=== PATIENT | female | born 1960 | race Caucasian/White ===

== ENCOUNTER → 2018-01-20 | Outpatient (CLI) | payer BC ==
[2018-01-20 10:51] LABS: Basophils % (A) 1 %; Eosinophils # (A) 0.4 k/uL (0-0.7); Eosinophils % (A) 7 %; HCT 38.3 % (34.0-46.0); HGB 12.9 gm/dL (11.4-16.0); Lymphocytes # (A) 1.5 k/uL (1.0-4.8); Lymphocytes % (A) 28 %; MCH 31.7 pg (25.0-35.0); MCHC 33.8 g/dL (31.0-37.0); MCV 93.5 fL (80.0-100.0); Mean Platelet Volume 6.9; Monocytes # (A) 0.4 k/uL (0-1.0); Monocytes % (A) 7 %; Neutrophils % (A) 56 %; Platelet Count 243 k/uL (150-450); RBC 4.09 m/uL (3.80-5.40); RDW 12.1 % (11.5-15.5); WBC 5.4 k/uL (3.8-10.6)
[2018-01-20 11:36] LABS: T4, Free (Free Thyroxine) 0.87 ng/dL (0.78-2.19)
[2018-01-20 16:06] LABS: Vitamin D 25 Hydroxy 33.6 ng/mL (30.0-100.0)
[2018-01-20 17:43] LABS: Progesterone 0.4 ng/mL
[2018-01-20 18:43] LABS: Hemoglobin A1C 5.5 % (4.0-6.0)
== END | disposition home or self-care (01) ==
LOC: LABWHC1 09:58
PROVIDERS: ATTEND Family Medicine
DX: E78.00 Pure hypercholesterolemia, unspecified (principal); I10 Essential (primary) hypertension; R53.82 Chronic fatigue, unspecified; Z78.0 Asymptomatic menopausal state
CPT/HCPCS: 36415; 80061; 82306; 82533; 82607; 82626; 82670; 83001; 83002; 83036; 83835; 84144; 84403; 84439; 84443; 84480; 85025

== ENCOUNTER → 2018-01-30 | Outpatient (CLI) | payer BC ==
--- NOTE | 2018-01-30 13:47 | MM ---
Reason for exam: additional evaluation requested from prior study. Last mammogram was performed 2 years and 9 months ago. History: Patient is postmenopausal and has history of breast cancer at age 45. Family history of breast cancer in mother at age 50. Silicone gel implants in both breasts, 2006. Mastectomy of the left breast, 2005. Took hormonal contraceptives for 5 years. Taking other hormone for 1 year. Physical Findings: Nurse did not find any significant physical abnormalities on exam. MG Diag Mamm Implant RT w CAD CC, MLO, and ID view(s) were taken of the right breast. Prior study comparison: May 09, 2015, right breast MG 3d diag mammo imp w/cad RT. May 07, 2014, right breast MG diagnostic mammo RT w CAD. There are scattered fibroglandular densities. No suspicious calcifications are seen. Implant is intact. No significant new findings when compared with previous films. These results were verbally communicated with the patient and result sheet given to the patient on 01/30/18. ASSESSMENT: Benign, BI-RAD 2 RECOMMENDATION: Follow-up diagnostic mammogram of the right breast in 1 year.
== END | disposition home or self-care (01) ==
LOC: RADMAMWWP 09:33
PROVIDERS: ATTEND Surgery
DX: Z08 Encounter for follow-up examination after completed treatment for malignant neoplasm (principal); Z85.3 Personal history of malignant neoplasm of breast
CPT/HCPCS: 77065

== ENCOUNTER → 2018-02-03 | Outpatient (CLI) | payer BC ==
--- NOTE | 2018-02-03 13:36 | BD ---
EXAMINATION TYPE: Axial Bone Density DATE OF EXAM: 02/03/2018 Comparison: Prior DEXA bone scan report June 16, 2008 CLINICAL HISTORY: Height: 63 Weight: 158 FRAX RISK QUESTIONS: Alcohol (3 or more units per day): no Family History (Parent hip fracture): no Glucocorticoids (More than 3mos): no (Ex: prednisone, prednisolone, methylprednisolone, dexamethasone, and hydrocortisone). History of Fracture in Adulthood: no Secondary Osteoporosis: 1. Type 1 Diabetes: no 2. Hyperthyroidism: no 3. Menopause before 45: yes 4. Malnutrition: no 5. Chronic liver disease: no Rheumatoid Arthritis: no Current Tobacco Use: no RISK FACTORS HISTORY OF: Family History of Osteoporosis: yes, mother Active: yes Diet low in dairy products/other sources of calcium: no Postmenopausal woman: yes Take estrogen and/or progesterone medications: Bioidentical hormones for 1 year How long: hormonal contraceptives about 5 years in the past Lost more than 2 inches in height since high school: no Frequent falls: no Poor Health: no Hyperparathyroidism: no Adrenal Insufficiency: no MEDICATIONS: Prednisone or other steroids: no Thyroid Medications: no Osteoporosis Medications: no Additional Medications: multivitamin, blood pressure, cholesterol meds Additional History: breast CA age 45 EXAM MEASUREMENTS: Bone mineral densitometry was performed using the Georgina Goodman System. Bone mineral density as measured about the Lumbar spine is: ----- L1-L4(G/cm2): 1.064 T Score Values are as follows: ----- L2: -1.2 ----- L3: -0.1 ----- L4: -1.6 ----- L1-L4: -1.0 Bone mineral density has: Decreased -13.0% since study of: 06/16/2008 Bone mineral density about the R hip (g/cm2): 0.899 Bone mineral density about the L hip (g/cm2): 0.894 T Score values are as follows: -----R Neck: -1.0 -----L Neck: -1.0 -----R Total: 0.0 -----L Total: -0.3 Bone mineral density has: Decreased -7.3% since study of: 06/16/2008 IMPRESSION: Normal (Values between +1 and -1 indicate normal bone mass). Consider repeating this study in 5 year s or sooner if there is some new clinical indication. NOTE: T-SCORE=SD OF THE YOUNG ADULT MEAN.
== END | disposition home or self-care (01) ==
LOC: RADBDWWP 07:24
PROVIDERS: ATTEND Family Medicine
DX: N95.1 Menopausal and female climacteric states (principal)
CPT/HCPCS: 77080

== ENCOUNTER → 2019-03-18 | Outpatient (CLI) | payer BC ==
--- NOTE | 2019-03-18 10:21 | MM ---
Reason for exam: additional evaluation requested from prior study. Last mammogram was performed 1 year and 2 months ago. History: Patient is postmenopausal and has history of breast cancer at age 45. Family history of breast cancer in mother at age 50. Silicone gel implants in both breasts, 2006. Mastectomy of the left breast, 2005. Took hormonal contraceptives for 5 years. Taking estrogen for 2 years. Taking other hormone for 2 years. Physical Findings: Nurse did not find any significant physical abnormalities on exam. MG 3D Diag Mammo Imp W/Cad RT CC, MLO, and ID view(s) were taken of the right breast. Prior study comparison: January 30, 2018, right breast MG diag mamm implant RT w CAD. May 09, 2015, right breast MG 3d diag mammo imp w/cad RT. The breast tissue is heterogeneously dense. This may lower the sensitivity of mammography. No suspicious abnormality. These results were verbally communicated with the patient and result sheet given to the patient on 03/18/19. ASSESSMENT: Negative, BI-RAD 1 RECOMMENDATION: Follow-up diagnostic mammogram of the right breast in 1 year.
== END | disposition home or self-care (01) ==
LOC: RADMAMWWP 08:55
PROVIDERS: ATTEND Obstetrics & Gynecology
DX: Z08 Encounter for follow-up examination after completed treatment for malignant neoplasm (principal); Z85.3 Personal history of malignant neoplasm of breast; Z98.82 Breast implant status
CPT/HCPCS: 77061; 77065

== ENCOUNTER → 2019-03-19 | Outpatient (CLI) | payer BC ==
--- NOTE | 2019-03-19 21:05 | CONS ---
CONSULTATION DATE OF SERVICE: 03/19/2019 58-year-old lady who has been evaluated in the sleep center for possible obstructive sleep apnea-hypopnea syndrome. HISTORY OF PRESENT ILLNESS/SLEEP WAKE EVALUATION.: SLEEP SCHEDULE: The patient's usual sleep schedule from 9 or 10:00 pm to 6 or 7 a.m. on working days and from 10 to 11 p.m. until 8 or 9 a.m. on weekends. FALLING ASLEEP: No problem with falling asleep, although she reads in bedroom. DURING SLEEP: She usually sleeps on the side position. According to her , she snores. She wakes up from sleep about 2 times with nocturia and grinding teeth. DURING THE DAY/SLEEP WAKE EVALUATION: During the day, she does have problem with memory, concentration, episodes of depression. [place] Sleepiness Scale is 2. PAST MEDICAL HISTORY: Positive for anxiety, depression, hypertension, hyperlipidemia, left breast CA. Menopause. PAST SURGICAL HISTORY: Left mastectomy in 2005, cholecystectomy. MEDICATIONS: Bupropion, atenolol, Ditropan, simvastatin. SOCIAL HISTORY: Negative for smoking. Alcohol consumption occasional. FAMILY HISTORY: Hypertension, angina, heart problems, hyperlipidemia, stroke, arthritis, sleep apnea, snoring, cancers, narcolepsy, liver problems, diabetes, anemia, mental illness. REVIEW OF SYSTEMS: Awakenings from sleep, memory problems. PHYSICAL EXAM: lady without distress, BP 134/73, HR 72, RR 16, height 5 feet 4 inches, weight 152, body mass index 29.6, oxygen saturation at room air 97%. Oropharynx extremely low position of soft palate. Mallampati 4. Neck 14-1/2 inches in circumference. Neck Supple, no JVD. Thyroid is not palpable. LUNGS Clear to percussion and to auscultation. Good air exchange. No wheezing or rhonchi. Restriction of nasal breathing bilaterally. HEART S1, S2 regular. No murmurs, gallops, or rubs. ABDOMEN Soft and nontender. Bowel sounds are present. No organomegaly appreciated. EXTREMITIES No clubbing or cyanosis. INTERVENTION SPECIALIST Awake, alert, and oriented X3. Cranial nerves 2 to 7 intact. There is no fasciculation or atrophy. noted. No focal deficits observed. IMPRESSION: 1. Snoring, awakenings from sleep with nocturia. Extremely low position of soft palate. Possible obstructive sleep apnea-hypopnea syndrome. 2. Overweight, body mass index 29.6. 3. Menopause. 4. History of left breast carcinoma, status post mastectomy in 2005. 5. History of anxiety. 6. History of depression. 7. Hypertension. 8. Hyperlipidemia. 9. Status post cholecystectomy. 10.Restriction of nasal breathing; possibly nasal septum deviation. PLAN: 1. Home sleep apnea test. 2. Polysomnography for evaluation of patient's breathing during sleep. 3. CPAP/BiPAP titration if sleep study confirms obstructive sleep apnea-hypopnea syndrome. 4. Preferable position during sleep on the side. 5. No driving if patient feels any sleepiness. 6. I will see patient for follow up visit to explain results of testing and following plan. Thank you very much for referring this patient for consultation. Sincerely, Osmani Manning MD, PhD, FAASM Diplomat of [employer] [facility] [place] MMODL / IJN: [id number] /
== END | disposition home or self-care (01) ==
LOC: SLEEP 15:30
PROVIDERS: ATTEND Internal Medicine
DX: R06.83 Snoring (principal); R35.1 Nocturia; E66.3 Overweight; Z68.29 Body mass index [BMI] 29.0-29.9, adult; Z78.0 Asymptomatic menopausal state; I10 Essential (primary) hypertension; E78.5 Hyperlipidemia, unspecified; J98.8 Other specified respiratory disorders; Z85.3 Personal history of malignant neoplasm of breast; Z86.59 Personal history of other mental and behavioral disorders; Z90.10 Acquired absence of unspecified breast and nipple; Z90.49 Acquired absence of other specified parts of digestive tract; Z79.899 Other long term (current) drug therapy
CPT/HCPCS: 99211

== ENCOUNTER → 2020-01-07 | Outpatient (CLI) | payer BC ==
--- NOTE | 2020-01-08 07:51 | SFUN ---
SLEEP CENTER FOLLOW UP NOTE DATE OF SERVICE: 01/07/2020 89-year-old lady has been followed in Sleep Center for treatment of obstructive sleep apnea-hypopnea syndrome. In end of 2019, patient has been diagnosed with moderate obstructive sleep apnea with apnea-hypopnea index 16.2. Had CPAP titration. During titration her respiration was normalized on CPAP. Today is her first visit after she was started on treatment with CPAP. The patient is able to use her CPAP equipment every night without significant problems. [place] Sleepiness Scale today is 2. I checked her CPAP unit, range of the pressure 5-9 cm of water. Average pressure 8.5 cm of water. Usage 27/30 nights for more than 4 hours with average usage is 5.8 hours per night. Leak is 20 L/minutes which is acceptable. Apnea-hypopnea index only 0.7 which is totally normal. PHYSICAL EXAM: Patient in no distress. Blood pressure 138/95, HR 88, RR 16, weight 158 pounds. Oxygen saturation at room air 96%. Abdomen slightly obese. Temperature 98.6. NECK: Supple, no JVD. Thyroid is not palpable. LUNGS: Clear to percussion and to auscultation. Good air exchange. No wheezing or rhonchi. HEART: S1, S2 regular. No murmurs, gallops, or rubs. ABDOMEN: Slightly obese. EXTREMITIES: No clubbing or cyanosis. MATERIAL SPREADER: Awake, alert, and oriented X3. Cranial nerves 2 to 7 intact. There is no fasciculation or atrophy. noted. No focal deficits observed. IMPRESSION: 1. Obstructive sleep apnea. 2. Hypertension. 3. Hyperlipidemia. 4. Status post cholecystectomy. 5. Menopause. PLAN: 1. Patient will continue to use PAP equipment every night for the whole night. 2. Sleep hygiene with regular time in bed for at least 7-1/2 to 8 hours. 3. Precautions related to driving. No driving if feeling sleepiness. 4. I will maintain all necessary prescription for PAP supplies including mask, tube, filters. 5. Watching weight. 6. No driving if feeling sleepiness. 7. Follow-up visit in 6 months or earlier if patient has any problems. Thank you very much for allowing me to participate in management of your patient. Sincerely, Osmani Manning MD, PhD, FAASM Diplomat of [employer] [facility] [employer] [facility] [place] SINDY / ZEB: [id number] /
== END | disposition home or self-care (01) ==
LOC: SLEEP 16:36
PROVIDERS: ATTEND Internal Medicine
DX: G47.33 Obstructive sleep apnea (adult) (pediatric) (principal); I10 Essential (primary) hypertension; Z90.49 Acquired absence of other specified parts of digestive tract; E78.5 Hyperlipidemia, unspecified; Z78.0 Asymptomatic menopausal state; Z99.89 Dependence on other enabling machines and devices

== ENCOUNTER → 2020-06-24 | Outpatient (CLI) | payer BC ==
--- NOTE | 2020-06-27 09:09 | MM ---
Reason for exam: additional evaluation requested from prior study. Last mammogram was performed 1 year and 3 months ago. History: Patient is postmenopausal and has history of breast cancer at age 45. Family history of breast cancer in mother at age 50. Silicone gel implants in both breasts, 2006. Mastectomy of the left breast, 2005. Took hormonal contraceptives for 5 years. Taking estrogen for 2 years. Taking other hormone for 2 years. Physical Findings: Nurse did not find any significant physical abnormalities on exam. MG 3D Diag Mammo Imp W/Cad RT CC, MLO, and ID view(s) were taken of the right breast. Prior study comparison: March 18, 2019, right breast MG 3d diag mammo imp w/cad RT. January 30, 2018, right breast MG diag mamm implant RT w CAD. There are scattered fibroglandular densities. Right breast prothesis. No significant new findings when compared with previous films. These results were verbally communicated with the patient and result sheet given to the patient on 06/24/20. ASSESSMENT: Benign, BI-RAD 2 RECOMMENDATION: Routine screening mammogram of the right breast in 1 year.
== END | disposition home or self-care (01) ==
LOC: RADMAMWWP 13:58
PROVIDERS: ATTEND Family Medicine
DX: Z08 Encounter for follow-up examination after completed treatment for malignant neoplasm (principal); Z85.3 Personal history of malignant neoplasm of breast
CPT/HCPCS: 77061; 77065

== ENCOUNTER 2020-07-29 13:19 | Emergency (ER) | payer BC ==
[2020-07-29 13:27] VITALS: RESP 18
[2020-07-29] MEDS ORDERED: KETOROLAC 15 MG/ML 1 ML VIAL IVP STA (13:44)
[2020-07-29] MEDS ORDERED: SODIUM CHLORIDE 0.9% 1,000 ML IV ONE (13:44)
[2020-07-29 14:15] LABS: Basophils % (A) 0 %; Eosinophils # (A) 0.1 k/uL (0-0.7); Eosinophils % (A) 1 %; HCT 41.7 % (34.0-46.0); HGB 14.1 gm/dL (11.4-16.0); Lymphocytes # (A) 4.5 k/uL (1.0-4.8); Lymphocytes % (A) 43 %; MCH 31.8 pg (25.0-35.0); MCHC 33.7 g/dL (31.0-37.0); MCV 94.3 fL (80.0-100.0); Mean Platelet Volume 6.9; Monocytes # (A) 0.9 k/uL (0-1.0); Monocytes % (A) 9 %; Neutrophils # (A) 4.6 k/uL (1.3-7.7); Neutrophils % (A) 44 %; Platelet Count 351 k/uL (150-450); RBC 4.42 m/uL (3.80-5.40); RDW 12.2 % (11.5-15.5); WBC 10.5 k/uL (3.8-10.6)
[2020-07-29 14:21] LABS: ALT 30 U/L (4-34); AST 28 U/L (14-36); African American GFR (CKD) >90 (>60 ml/min/1.73 sqM); Alkaline Phosphatase 94 U/L (38-126); Anion Gap 11 mmol/L; Blood Urea Nitrogen 22 mg/dL (7-17); C Reactive Protein <5.0 mg/L (<10.0); Calcium 10.4 mg/dL (8.4-10.2); Carbon Dioxide 28 mmol/L (22-30); Chloride 102 mmol/L (98-107); Glucose 98 mg/dL (74-99); LDH 390 U/L (313-618); Magnesium 1.7 mg/dL (1.6-2.3); Non-African American GFR(CKD) >90 (>60 ml/min/1.73 sqM); Potassium 3.1 mmol/L (3.5-5.1); Sodium 141 mmol/L (137-145); Total Bilirubin 0.6 mg/dL (0.2-1.3)
[2020-07-29 14:26] LABS: D-Dimer <0.17 mg/L FEU (<0.60); INR 0.9 (<1.2); Partial Thromboplastin Time 22.3 sec (22.0-30.0)
--- NOTE | 2020-07-29 14:42 | XR ---
EXAMINATION TYPE: XR chest 1V portable DATE OF EXAM: 07/29/2020 COMPARISON: Chest x-ray 07/18/2012 HISTORY: Suspected Covid 19 pneumonia, abnormal chest x-ray TECHNIQUE: Single frontal view of the chest is obtained. FINDINGS: There is no focal air space opacity, pleural effusion, or pneumothorax seen. The cardiac silhouette size is within normal limits. Postop change status post breast prosthesis bilaterally. Michael gical lynette present in the left axilla. There are prominent lung volumes. The osseous structures a re intact. IMPRESSION: No acute process.
--- NOTE | 2020-07-29 14:47 | ED ---
General Adult HPI - General Source: patient, RN notes reviewed, old records reviewed Mode of arrival: ambulatory Limitations: no limitations <Emeterio Rivera - Last Filed: 07/29/20 16:30> <Yumiko Power - Last Filed: 07/30/20 14:51> - General Chief complaint: Shortness of Breath Stated complaint: SOB,Fatigue Time Seen by Provider: 07/29/20 13:20 - History of Present Illness Initial comments: This is a 60-year-old female presents emergency Department complaining that for 10 days she's had body aches and just been extremely fatigued. Patient states that she also some shortness of breath per patient states she had multiple "because all of which are negative. Patient states she's been seen by multiple physicians over the last 2 days and they have not been able to the out why she is not feeling well. Patient denies any chest pain or palpitations. Patient denies headache. Patient denies any numbness weakness. Patient denies any lightheadedness or dizziness. Patient denies any loss of smell or taste. Patient denies any diarrhea. Patient states she did vomit one time. Patient denies any abdominal pain. (Emeterio Rivera) - Related Data Home Medications Medication Instructions Recorded Confirmed Prosymbiotic 1 cap PO HS 06/25/19 07/29/20 Simvastatin [Zocor] 10 mg PO HS 06/25/19 07/29/20 atenoloL [Tenormin] 12.5 mg PO DAILY 06/25/19 07/29/20 Albuterol Sulfate [Ventolin HFA] 1 - 2 puff INHALATION RT-Q6H PRN 07/29/20 07/29/20 Ascorbic Acid [Vitamin C] 1,000 mg PO DAILY 07/29/20 07/29/20 Cholecalciferol (Vitamin D3) 125 mcg PO DAILY 07/29/20 07/29/20 [Vitamin D3 (5000 Iu)] D3-K2 Lipo [place] 2 spray PO DAILY 07/29/20 07/29/20 Dismuzyme Plus 1 cap PO DAILY 07/29/20 Doxycycline Hyclate [Vibramycin] 100 mg PO BID 07/29/20 07/29/20 Lysine HCl [l-Lysine] 1,500 mg PO DAILY 07/29/20 07/29/20 Osteoforce 2 cap PO DAILY 07/29/20 07/29/20 Para-Chord Drops 1 drop PO DAILY 07/29/20 07/29/20 Proefa 3-6-9 1 cap PO DAILY 07/29/20 07/29/20 Seasame Seed Oil 1 cap PO W/LUNCH 07/29/20 07/29/20 Zinc Sulfate [Orazinc] 220 mg PO W/LUNCH 07/29/20 07/29/20 buPROPion HCL [Wellbutrin SR] 150 mg PO Q12H 07/29/20 07/29/20 Previous Rx's Medication Instructions Recorded Hydrocortisone [Cortef] 10 mg PO BID #8 tablet 07/29/20 Hydrocortisone [Cortef] 10 mg PO BID 4 Days #8 tablet 07/30/20 Allergies Allergy/AdvReac Type Severity Reaction Status Date / Time azithromycin [From Zithromax] Allergy palpitation Verified 07/29/20 14:12 s desogestrel-ethinyl estradiol Allergy " almost Verified 07/29/20 14:12 [From Chikis (28)] had a stroke" ethinyl estradiol Allergy " almost Verified 07/29/20 14:12 [From Chikis (28)] had a stroke" Review of Systems ROS Other: All systems not noted in ROS Statement are negative. <Emeterio Rivera - Last Filed: 07/29/20 16:30> ROS Other: All systems not noted in ROS Statement are negative. <Yumiko Power - Last Filed: 07/30/20 14:51> ROS Statement: Those systems with pertinent positive or pertinent negative responses have been documented in the HPI. Past Medical History Past Medical History: Cancer, Hyperlipidemia, Hypertension Additional Past Medical History / Comment(s): hx lt breast cancer History of Any Multi-Drug Resistant Organisms: None Reported Past Surgical History: Breast Surgery, Cholecystectomy Additional Past Surgical History / Comment(s): lt breast mastectomy. colonoscopy Past Anesthesia/Blood Transfusion Reactions: No Reported Reaction Past Psychological History: Anxiety, Depression Smoking Status: Never smoker Past Alcohol Use History: Occasional Past Drug Use History: None Reported - Past Family History Mother Family Medical History: Cancer <Emeterio Rivera - Last Filed: 07/29/20 16:30> General Exam Limitations: no limitations <Emeterio Rivrea - Last Filed: 07/29/20 16:30> - General Exam Comments Initial Comments: GENERAL: Patient is well-developed and well-nourished. Patient is nontoxic and well- hydrated and is in mild distress. ENT: Neck is soft and supple. No significant lymphadenopathy is noted. Oropharynx is clear. Moist mucous membranes. Neck has full range of motion without eliciting any pain. EYES: The sclera were anicteric and conjunctiva were pink and moist. Extraocular movements were intact and pupils were equal round and reactive to light. Eyelids were unremarkable. PULMONARY: Unlabored respirations. Good breath sounds bilaterally. No audible rales rhonchi or wheezing was noted. CARDIOVASCULAR: There is a regular rate and rhythm without any murmurs gallops or rubs. ABDOMEN: Soft and nontender with normal bowel sounds. No palpable organomegaly was noted. There is no palpable pulsatile mass. SKIN: Skin is clear with no lesions or rashes and otherwise unremarkable. NEUROLOGIC: Patient is alert and oriented x3. Cranial nerves II through XII are grossly intact. Motor and sensory are also intact. Normal speech, volume and content. Symmetrical smile. MUSCULOSKELETAL: Normal extremities with adequate strength and full range of motion. No lower extremity swelling or edema. No calf tenderness. LYMPHATICS: No significant lymphadenopathy is noted PSYCHIATRIC: Normal psychiatric evaluation. (Emeterio Rivera) Course Vital Signs 07/29/20 07/29/20 13:21 16:48 Temperature 97.9 F 98.8 F Pulse Rate 85 77 Respiratory 18 18 Rate Blood Pressure 142/84 141/83 O2 Sat by Pulse 97 98 Oximetry Medical Decision Making - Lab Data Result diagrams: 07/29/20 13:48 07/29/20 13:48 <Emeterio Rivera - Last Filed: 07/29/20 16:30> - Lab Data Result diagrams: 07/29/20 13:48 07/29/20 13:48 <Yumiko Power - Last Filed: 07/30/20 14:51> - Medical Decision Making EKG shows normal sinus rhythm at 84 bpm NV interval is 170 QRS is 96 Q-T intervals 374 QTC is 441. Patient's EKG shows no ST segment elevation or depre ssion. Chest x-ray shows no acute abnormality. I spoke with Dr. Santiago about the patient and she didn't feel as though the patient any admittable diagnosis. She wanted the patient to have hydrocortisone before she left and send her home on some hydrocortisone and she also requested we do a cortisol baseline level. Dr. Santiago wanted to follow-up the patient on Saturday morning. (Emeterio Rivera) Patient called the ER on 07/30, her pharmacy was unable to fill prescription un til Tuesday 08/01, I provided the patient with a written prescription to take to alternate pharmacy of her choice (Yumiko Power) - Lab Data Lab Results 07/29/20 07/29/20 07/29/20 Range/Units 13:48 13:48 13:48 WBC 10.5 (3.8-10.6) k/uL RBC 4.42 (3.80-5.40) m/uL Hgb 14.1 (11.4-16.0) gm/dL Hct 41.7 (34.0-46.0) % MCV 94.3 (80.0-100.0) fL MCH 31.8 (25.0-35.0) pg MCHC 33.7 (31.0-37.0) g/dL RDW 12.2 (11.5-15.5) % Plt Count 351 (150-450) k/uL MPV 6.9 Neutrophils % 44 % Lymphocytes % 43 % Monocytes % 9 % Eosinophils % 1 % Basophils % 0 % Neutrophils # 4.6 (1.3-7.7) k/uL Lymphocytes # 4.5 (1.0-4.8) k/uL Monocytes # 0.9 (0-1.0) k/uL Eosinophils # 0.1 (0-0.7) k/uL Basophils # 0.0 (0-0.2) k/uL PT 10.0 (9.0-12.0) sec INR 0.9 (<1.2) APTT 22.3 (22.0-30.0) sec D-Dimer <0.17 (<0.60) mg/L FEU Sodium 141 (137-145) mmol/L Potassium 3.1 L (3.5-5.1) mmol/L Chloride 102 (98-107) mmol/L Carbon Dioxide 28 (22-30) mmol/L Anion Gap 11 mmol/L BUN 22 H (7-17) mg/dL Creatinine 0.64 (0.52-1.04) mg/dL Est GFR (CKD-EPI)AfAm >90 (>60 ml/min/1.73 sqM) Est GFR (CKD-EPI)NonAf >90 (>60 ml/min/1.73 sqM) Glucose 98 (74-99) mg/dL Lactic Ac Sepsis Rflx Plasma Lactic Acid Dmitriy (0.7-2.0) mmol/L Calcium 10.4 H (8.4-10.2) mg/dL Magnesium 1.7 (1.6-2.3) mg/dL Ferritin 135.3 (10.0-291.0) ng/mL Total Bilirubin 0.6 (0.2-1.3) mg/dL AST 28 (14-36) U/L ALT 30 (4-34) U/L Alkaline Phosphatase 94 (38-126) U/L Lactate Dehydrogenase 390 (313-618) U/L Creatine Kinase (30-135) U/L C-Reactive Protein <5.0 (<10.0) mg/L Total Protein 8.0 (6.3-8.2) g/dL Albumin 5.0 (3.5-5.0) g/dL Procalcitonin (0.02-0.09) ng/mL TSH (0.465-4.680) mIU/L Free T4 (0.78-2.19) ng/dL Cortisol ug/dL Urine Color Urine Appearance (Clear) Urine pH (5.0-8.0) Ur Specific [place] (1.001-1.035) Urine Protein (Negative) Urine Glucose (UA) (Negative) Urine Ketones (Negative) Urine Blood (Negative) Urine Nitrite (Negative) Urine Bilirubin (Negative) Urine Urobilinogen (<2.0) mg/dL Ur Leukocyte Esterase (Negative) Urine RBC (0-5) /hpf Urine WBC (0-5) /hpf Ur Squamous Epith Cells (0-4) /hpf Urine Bacteria (None) /hpf Urine Mucus (None) /hpf Coronavirus (PCR) (Not Detectd) Heterophile Antibody (Negative) 07/29/20 07/29/20 07/29/20 Range/Units 13:48 13:48 13:48 WBC (3.8-10.6) k/uL RBC (3.80-5.40) m/uL Hgb (11.4-16.0) gm/dL Hct (34.0-46.0) % MCV (80.0-100.0) fL MCH (25.0-35.0) pg MCHC (31.0-37.0) g/dL RDW (11.5-15.5) % Plt Count (150-450) k/uL MPV Neutrophils % % Lymphocytes % % Monocytes % % Eosinophils % % Basophils % % Neutrophils # (1.3-7.7) k/uL Lymphocytes # (1.0-4.8) k/uL Monocytes # (0-1.0) k/uL Eosinophils # (0-0.7) k/uL Basophils # (0-0.2) k/uL PT (9.0-12.0) sec INR (<1.2) APTT (22.0-30.0) sec D-Dimer (<0.60) mg/L FEU Sodium (137-145) mmol/L Potassium (3.5-5.1) mmol/L Chloride (98-107) mmol/L Carbon Dioxide (22-30) mmol/L Anion Gap mmol/L BUN (7-17) mg/dL Creatinine (0.52-1.04) mg/dL Est GFR (CKD-EPI)AfAm (>60 ml/min/1.73 sqM) Est GFR (CKD-EPI)NonAf (>60 ml/min/1.73 sqM) Glucose (74-99) mg/dL Lactic Ac Sepsis Rflx Plasma Lactic Acid Dmitriy 2.1 H* (0.7-2.0) mmol/L Calcium (8.4-10.2) mg/dL Magnesium (1.6-2.3) mg/dL Ferritin (10.0-291.0) ng/mL Total Bilirubin (0.2-1.3) mg/dL AST (14-36) U/L ALT (4-34) U/L Alkaline Phosphatase (38-126) U/L Lactate Dehydrogenase (313-618) U/L Creatine Kinase (30-135) U/L C-Reactive Protein (<10.0) mg/L Total Protein (6.3-8.2) g/dL Albumin (3.5-5.0) g/dL Procalcitonin 0.04 (0.02-0.09) ng/mL TSH (0.465-4.680) mIU/L Free T4 (0.78-2.19) ng/dL Cortisol ug/dL Urine Color Urine Appearance (Clear) Urine pH (5.0-8.0) Ur Specific [place] (1.001-1.035) Urine Protein (Negative) Urine Glucose (UA) (Negative) Urine Ketones (Negative) Urine Blood (Negative) Urine Nitrite (Negative) Urine Bilirubin (Negative) Urine Urobilinogen (<2.0) mg/dL Ur Leukocyte Esterase (Negative) Urine RBC (0-5) /hpf Urine WBC (0-5) /hpf Ur Squamous Epith Cells (0-4) /hpf Urine Bacteria (None) /hpf Urine Mucus (None) /hpf Coronavirus (PCR) Not Detected (Not Detectd) Heterophile Antibody (Negative) 07/29/20 07/29/20 07/29/20 Range/Units 13:48 13:48 13:48 WBC (3.8-10.6) k/uL RBC (3.80-5.40) m/uL Hgb (11.4-16.0) gm/dL Hct (34.0-46.0) % MCV (80.0-100.0) fL MCH (25.0-35.0) pg MCHC (31.0-37.0) g/dL RDW (11.5-15.5) % Plt Count (150-450) k/uL MPV Neutrophils % % Lymphocytes % % Monocytes % % Eosinophils % % Basophils % % Neutrophils # (1.3-7.7) k/uL Lymphocytes # (1.0-4.8) k/uL Monocytes # (0-1.0) k/uL Eosinophils # (0-0.7) k/uL Basophils # (0-0.2) k/uL PT (9.0-12.0) sec INR (<1.2) APTT (22.0-30.0) sec D-Dimer (<0.60) mg/L FEU Sodium (137-145) mmol/L Potassium (3.5-5.1) mmol/L Chloride (98-107) mmol/L Carbon Dioxide (22-30) mmol/L Anion Gap mmol/L BUN (7-17) mg/dL Creatinine (0.52-1.04) mg/dL Est GFR (CKD-EPI)AfAm (>60 ml/min/1.73 sqM) Est GFR (CKD-EPI)NonAf (>60 ml/min/1.73 sqM) Glucose (74-99) mg/dL Lactic Ac Sepsis Rflx Plasma Lactic Acid Dmitriy (0.7-2.0) mmol/L Calcium (8.4-10.2) mg/dL Magnesium (1.6-2.3) mg/dL Ferritin (10.0-291.0) ng/mL Total Bilirubin (0.2-1.3) mg/dL AST (14-36) U/L ALT (4-34) U/L Alkaline Phosphatase (38-126) U/L Lactate Dehydrogenase (313-618) U/L Creatine Kinase 45 (30-135) U/L C-Reactive Protein (<10.0) mg/L Total Protein (6.3-8.2) g/dL Albumin (3.5-5.0) g/dL Procalcitonin (0.02-0.09) ng/mL TSH 4.780 H (0.465-4.680) mIU/L Free T4 1.44 (0.78-2.19) ng/dL Cortisol ug/dL Urine Color Urine Appearance (Clear) Urine pH (5.0-8.0) Ur Specific [place] (1.001-1.035) Urine Protein (Negative) Urine Glucose (UA) (Negative) Urine Ketones (Negative) Urine Blood (Negative) Urine Nitrite (Negative) Urine Bilirubin (Negative) Urine Urobilinogen (<2.0) mg/dL Ur Leukocyte Esterase (Negative) Urine RBC (0-5) /hpf Urine WBC (0-5) /hpf Ur Squamous Epith Cells (0-4) /hpf Urine Bacteria (None) /hpf Urine Mucus (None) /hpf Coronavirus (PCR) (Not Detectd) Heterophile Antibody Negative (Negative) 07/29/20 07/29/20 07/29/20 Range/Units 14:44 14:49 16:29 WBC (3.8-10.6) k/uL RBC (3.80-5.40) m/uL Hgb (11.4-16.0) gm/dL Hct (34.0-46.0) % MCV (80.0-100.0) fL MCH (25.0-35.0) pg MCHC (31.0-37.0) g/dL RDW (11.5-15.5) % Plt Count (150-450) k/uL MPV Neutrophils % % Lymphocytes % % Monocytes % % Eosinophils % % Basophils % % Neutrophils # (1.3-7.7) k/uL Lymphocytes # (1.0-4.8) k/uL Monocytes # (0-1.0) k/uL Eosinophils # (0-0.7) k/uL Basophils # (0-0.2) k/uL PT (9.0-12.0) sec INR (<1.2) APTT (22.0-30.0) sec D-Dimer (<0.60) mg/L FEU Sodium (137-145) mmol/L Potassium (3.5-5.1) mmol/L Chloride (98-107) mmol/L Carbon Dioxide (22-30) mmol/L Anion Gap mmol/L BUN (7-17) mg/dL Creatinine (0.52-1.04) mg/dL Est GFR (CKD-EPI)AfAm (>60 ml/min/1.73 sqM) Est GFR (CKD-EPI)NonAf (>60 ml/min/1.73 sqM) Glucose (74-99) mg/dL Lactic Ac Sepsis Rflx Y Plasma Lactic Acid Dmitriy (0.7-2.0) mmol/L Calcium (8.4-10.2) mg/dL Magnesium (1.6-2.3) mg/dL Ferritin (10.0-291.0) ng/mL Total Bilirubin (0.2-1.3) mg/dL AST (14-36) U/L ALT (4-34) U/L Alkaline Phosphatase (38-126) U/L Lactate Dehydrogenase (313-618) U/L Creatine Kinase (30-135) U/L C-Reactive Protein (<10.0) mg/L Total Protein (6.3-8.2) g/dL Albumin (3.5-5.0) g/dL Procalcitonin (0.02-0.09) ng/mL TSH (0.465-4.680) mIU/L Free T4 (0.78-2.19) ng/dL Cortisol 1 ug/dL Urine Color Light Yellow Urine Appearance Clear (Clear) Urine pH 6.0 (5.0-8.0) Ur Specific [place] 1.009 (1.001-1.035) Urine Protein Negative (Negative) Urine Glucose (UA) Negative (Negative) Urine Ketones Negative (Negative) Urine Blood Negative (Negative) Urine Nitrite Negative (Negative) Urine Bilirubin Negative (Negative) Urine Urobilinogen <2.0 (<2.0) mg/dL Ur Leukocyte Esterase Moderate H (Negative) Urine RBC 2 (0-5) /hpf Urine WBC 4 (0-5) /hpf Ur Squamous Epith Cells 3 (0-4) /hpf Urine Bacteria Rare H (None) /hpf Urine Mucus Rare H (None) /hpf Coronavirus (PCR) (Not Detectd) Heterophile Antibody (Negative) Disposition Is patient prescribed a controlled substance at d/c from ED?: No Time of Disposition: 16:26 <Emeterio Rivera - Last Filed: 07/29/20 16:30> <Yumiko Power - Last Filed: 07/30/20 14:51> Clinical Impression: Dehydration, Hypokalemia, Fatigue, Myalgia Disposition: HOME SELF-CARE Condition: Good Instructions (If sedation given, give patient instructions): Musculoskeletal Pain (ED) Prescriptions: Hydrocortisone [Cortef] 10 mg PO BID #8 tablet Referrals: Ijeoma Santiago MD [Primary Care Provider] - 1-2 days
[2020-07-29] MEDS ORDERED: POTASSIUM CHLORIDE ER 20 MEQ TAB.ER PO STA (14:54)
[2020-07-29 15:23] LABS: Appearance,Urine Clear (Clear); Bacteria,Urine Rare /hpf; Bilirubin,Urine Negative (Negative); Blood,Urine Negative (Negative); Color,Urine Light Yellow; Glucose,Urine (UA) Negative (Negative); Ketones,Urine Negative (Negative); Leukocyte Esterase,Urine Moderate (Negative); Mucus,Urine Rare /hpf; Nitrite,Urine Negative (Negative); Protein,Urine Negative (Negative); RBC,Urine 2 /hpf (0-5); Specific Gravity,Urine 1.009 (1.001-1.035); Squamous Epithelial Cell,Urine 3 /hpf (0-4); Urobilinogen,Urine <2.0 mg/dL (<2.0); WBC,Urine 4 /hpf (0-5)
[2020-07-29] MEDS ORDERED: HYDROCORTISONE SUCCINATE 100 MG/2 ML VIAL IV STA (16:25)
[2020-07-29 16:49] VITALS: BP 141/83; PULSE 77; TEMP 98.8
[2020-07-29 17:55] LABS: T4, Free (Free Thyroxine) 1.44 ng/dL (0.78-2.19)
[2020-07-30 01:04] LABS: Ferritin 135.3 ng/mL (10.0-291.0)
== END 2020-07-29 17:03 | disposition home or self-care (01) ==
LOC: EC 13:19
DX: E87.6 Hypokalemia (principal); R53.83 Other fatigue; M79.10 Myalgia, unspecified site; E86.0 Dehydration; E78.5 Hyperlipidemia, unspecified; I10 Essential (primary) hypertension; F41.9 Anxiety disorder, unspecified; F32.9 Major depressive disorder, single episode, unspecified; Z20.822 Contact with and (suspected) exposure to COVID-19; Z79.899 Other long term (current) drug therapy; Z88.1 Allergy status to other antibiotic agents; Z88.8 Allergy status to other drugs, medicaments and biological substances; Z85.3 Personal history of malignant neoplasm of breast; Z90.49 Acquired absence of other specified parts of digestive tract; Z90.12 Acquired absence of left breast and nipple
CPT/HCPCS: 36415; 93005; 85379; 84439; 80053; 84443; 82533; 82728; 82550; 83605; 83615; 83735; 85025; 85610; 85730; 86140; 86308; 81001; 87040; 84145; 87635; 71045; 99285; 96374; 96375; 96361 ×2; J1720; J1885

== ENCOUNTER → 2020-08-10 | Outpatient (CLI) | payer BC ==
--- NOTE | 2020-08-10 14:40 | SFUN ---
SLEEP CENTER FOLLOW UP NOTE DATE OF SERVICE: 08/10/2020 This 60-year-old lady has been followed in Sleep Center for treatment of obstructive sleep apnea-hypopnea syndrome. The patient continues to use her equipment every night for the whole night. She does not snore with the CPAP. She likes her machine and likes her mask. No problems with humidification. She is getting her supplies in time. [place] Sleepiness Scale today is 2, which is absolutely normal. I checked her CPAP unit. Range of the pressure 5-9 with average pressure 8.8. Usage is 100% at night for more than 4 hours, average about 6 hours per night. Leak is 12 L/minute, which is in normal range. Apnea-hypopnea index is 1.7, which is normal. MEDICATIONS: Atenolol once a day, bupropion twice a day, simvastatin once a day, venlafaxine once a day, hydrocortisone twice a day. PHYSICAL EXAMINATION: GENERAL: Patient in no distress. VITAL SIGNS: BP 137/82, HR 87, RR 15, height 5 feet 3-3/4 inches, weight 155.4, oxygen saturation at room air 90%, BMI 27.4. HEENT: PERRLA, EOMI, evaluation of oropharynx showed tongue protrudes midline. NECK: 15 inches in circumference. LUNGS: Clear to percussion and to auscultation. Good air exchange. No wheezing or rhonchi. HEART: S1, S2 regular. No murmurs, gallops, or rubs. ABDOMEN: Slightly obese. EXTREMITIES: No clubbing or cyanosis. TEMPORARY ADMINISTRATIVE ASSISTANT: Awake, alert, and oriented X3. Cranial nerves 2 to 7 intact. There is no fasciculation or atrophy. noted. No focal deficits observed. IMPRESSION: 1. Obstructive sleep apnea-hypopnea syndrome. Patient demonstrated 100% compliance with treatment, benefitting from treatment. 2. Hypertension. 3. Hyperlipidemia. 4. Status post cholecystectomy. 5. History of anxiety. 6. History of depression. 7. History of left breast carcinoma, status post mastectomy in 2005. PLAN: 1. Patient will continue to use PAP equipment every night for the whole night. 2. Sleep hygiene with regular time in bed for at least 7-1/2 to 8 hours. 3. Precautions related to driving. No driving if feeling sleepiness. 4. I will maintain all necessary prescription for PAP supplies including mask, tube, filters. 5. Watching weight. 6. No driving if feeling sleepiness. 7. Follow-up visit in 6 months or earlier if patient has any problems. Thank you very much for allowing me to participate in management of your patient. Sincerely, Osmani Manning MD, PhD, FAASM Diplomat of [place] [employer] [place] [employer] [facility] [place] MMODL / IJN: [id number] /
== END | disposition home or self-care (01) ==
LOC: SLEEP 13:16
PROVIDERS: ATTEND Internal Medicine
DX: G47.33 Obstructive sleep apnea (adult) (pediatric) (principal); I10 Essential (primary) hypertension; E78.5 Hyperlipidemia, unspecified; Z86.59 Personal history of other mental and behavioral disorders; Z85.3 Personal history of malignant neoplasm of breast; Z90.10 Acquired absence of unspecified breast and nipple; Z90.49 Acquired absence of other specified parts of digestive tract; Z79.891 Long term (current) use of opiate analgesic; Z79.899 Other long term (current) drug therapy; Z79.52 Long term (current) use of systemic steroids; Z99.89 Dependence on other enabling machines and devices

== ENCOUNTER 2021-06-20 18:11 | Emergency (ER) | payer BC ==
[2021-06-20] MEDS ORDERED: SODIUM CHLORIDE 0.9% 1,000 ML IV STA (20:43)
[2021-06-20] MEDS ORDERED: ACETAMINOPHEN TAB 325 MG TAB PO STA (20:43)
[2021-06-20] MEDS ORDERED: ONDANSETRON 4 MG/2 ML VIAL IVP STA (20:44)
--- NOTE | 2021-06-20 20:46 | ED ---
General Adult HPI - General Chief complaint: Fever Stated complaint: Covid+,Wants antibody Time Seen by Provider: 06/20/21 20:40 Source: patient, RN notes reviewed Mode of arrival: ambulatory Limitations: no limitations - History of Present Illness Initial comments: 60-year-old female, alert and oriented 4, presents to the emergency room with complaints of scratchy throat, nausea, body aches, fever and chills, headache, fatigue and cough since Saturday. She tested positive for coronavirus today. She does have a history of hypertension. She has not been vaccinated. She does want the monoclonal antibodies infusion. -: days(s) (3) Location: head Severity scale (1-10): 4 Quality: aching Consistency: constant Improves with: none Worsens with: none Associated Symptoms: cough, fever/chills, headaches, loss of appetite, nausea/vomiting, other (body aches) - Related Data Home Medications Medication Instructions Recorded Confirmed Prosymbiotic 1 cap PO HS 06/25/19 07/29/20 Simvastatin [Zocor] 10 mg PO HS 06/25/19 07/29/20 atenoloL [Tenormin] 12.5 mg PO DAILY 06/25/19 07/29/20 Albuterol Sulfate [Ventolin HFA] 1 - 2 puff INHALATION RT-Q6H PRN 07/29/20 07/29/20 Ascorbic Acid [Vitamin C] 1,000 mg PO DAILY 07/29/20 07/29/20 Cholecalciferol (Vitamin D3) 125 mcg PO DAILY 07/29/20 07/29/20 [Vitamin D3 (5000 Iu)] D3-K2 Lipo [place] 2 spray PO DAILY 07/29/20 07/29/20 Dismuzyme Plus 1 cap PO DAILY 07/29/20 Doxycycline Hyclate [Vibramycin] 100 mg PO BID 07/29/20 07/29/20 Lysine HCl [l-Lysine] 1,500 mg PO DAILY 07/29/20 07/29/20 Osteoforce 2 cap PO DAILY 07/29/20 07/29/20 Para-Chord Drops 1 drop PO DAILY 07/29/20 07/29/20 Proefa 3-6-9 1 cap PO DAILY 07/29/20 07/29/20 Seasame Seed Oil 1 cap PO W/LUNCH 07/29/20 07/29/20 Zinc Sulfate [Orazinc] 220 mg PO W/LUNCH 07/29/20 07/29/20 buPROPion HCL [Wellbutrin SR] 150 mg PO Q12H 07/29/20 07/29/20 Previous Rx's Medication Instructions Recorded Hydrocortisone [Cortef] 10 mg PO BID #8 tablet 07/29/20 Hydrocortisone [Cortef] 10 mg PO BID 4 Days #8 tablet 07/30/20 predniSONE 50 mg PO DAILY #5 tab 06/21/21 Allergies Allergy/AdvReac Type Severity Reaction Status Date / Time azithromycin [From Zithromax] Allergy palpitation Verified 06/20/21 20:13 s desogestrel-ethinyl estradiol Allergy " almost Verified 06/20/21 20:13 [From Chikis (28)] had a stroke" ethinyl estradiol Allergy " almost Verified 06/20/21 20:13 [From Chikis (28)] had a stroke" Review of Systems ROS Statement: Those systems with pertinent positive or pertinent negative responses have been documented in the HPI. ROS Other: All systems not noted in ROS Statement are negative. Past Medical History Past Medical History: Cancer, Hyperlipidemia, Hypertension Additional Past Medical History / Comment(s): hx lt breast cancer History of Any Multi-Drug Resistant Organisms: None Reported Past Surgical History: Breast Surgery, Cholecystectomy Additional Past Surgical History / Comment(s): lt breast mastectomy. colonoscopy Past Anesthesia/Blood Transfusion Reactions: No Reported Reaction Past Psychological History: Anxiety, Depression Smoking Status: Never smoker Past Alcohol Use History: Occasional Past Drug Use History: None Reported - Past Family History Mother Family Medical History: Cancer General Exam Limitations: no limitations General appearance: alert, in no apparent distress Head exam: Present: atraumatic, normocephalic, normal inspection Eye exam: Present: normal appearance, EOMI. Absent: scleral icterus, conjunctival injection, periorbital swelling ENT exam: Present: normal exam, normal oropharynx, mucous membranes moist Neck exam: Present: normal inspection, full ROM. Absent: tenderness, meningismus, lymphadenopathy, thyromegaly Respiratory exam: Present: normal lung sounds bilaterally. Absent: respiratory distress, wheezes, rales, rhonchi, stridor, chest wall tenderness, accessory muscle use, decreased breath sounds Cardiovascular Exam: Present: regular rate, normal rhythm, normal heart sounds. Absent: systolic murmur, diastolic murmur, rubs, gallop, clicks GI/Abdominal exam: Present: soft, normal bowel sounds. Absent: distended, tenderness, guarding, rebound, rigid Extremities exam: Present: normal capillary refill Neurological exam: Present: alert, oriented X3 Psychiatric exam: Present: normal affect, normal mood Skin exam: Present: warm, dry, intact, normal color. Absent: rash, cyanosis, diaphoretic, petechiae, pallor Course Vital Signs 06/20/21 06/20/21 06/21/21 20:05 22:41 00:00 Temperature 101.4 F H 98.8 F Pulse Rate 95 72 91 Respiratory 18 16 20 Rate Blood Pressure 143/80 130/76 O2 Sat by Pulse 98 97 94 L Oximetry Medical Decision Making - Medical Decision Making 60-year-old female, alert and oriented 4, presents to the emergency room with complaints of scratchy throat, nausea, body aches, fever or chills, headache, fatigue and cough since Saturday. She tested positive for coronavirus today. She does have a history of hypertension. She has not been vaccinated. She was given monoclonal antibodies infusion and tolerated them well. She was given a dose of albuterol for her persistent cough in the emergency room. She was discharged home to follow up with her primary care doctor or return to the emergency room with any new or worsening symptoms. vital signs are stable at discharge. - Lab Data Lab Results 06/20/21 Range/Units 21:18 Coronavirus (PCR) Detected A (Not Detectd) Disposition Clinical Impression: COVID-19 Disposition: HOME SELF-CARE Condition: Good Additional Instructions: Return to the emergency room with any new or concerning symptoms. Vitamin C, vitamin D and zinc to improve immune health. Increase your fluid intake. Prescriptions: predniSONE 50 mg PO DAILY #5 tab Is patient prescribed a controlled substance at d/c from ED?: No Referrals: Ijeoma Santiago MD [Primary Care Provider] - 1-2 days Time of Disposition: 01:57
[2021-06-20] MEDS ORDERED: SODIUM CHLORIDE 0.9% 50 ML IVPB ONE (21:30)
[2021-06-20] MEDS ORDERED: BAMLANIVIMAB (EUA) 700 MG, ETESEVIMAB (EUA) 1,400 MG in SODIUM CHLORIDE 0.9% 50 ML IVPB ONE (22:00)
[2021-06-20] MEDS ORDERED: BENZONATATE 100 MG CAP PO STA (23:33)
[2021-06-21 00:51] VITALS: BP 130/76; PULSE 91; RESP 20; TEMP 98.8
[2021-06-21] MEDS ORDERED: ALBUTEROL HFA INHALER INHALATION STA (00:53)
[2021-06-21] MEDS ORDERED: predniSONE 50 MG TAB PO STA (01:17)
== END 2021-06-21 01:34 | disposition home or self-care (01) ==
LOC: EC 18:11
DX: U07.1 COVID-19 (principal); I10 Essential (primary) hypertension; E78.5 Hyperlipidemia, unspecified; F41.9 Anxiety disorder, unspecified; F32.A Depression, unspecified; Z85.3 Personal history of malignant neoplasm of breast; Z90.49 Acquired absence of other specified parts of digestive tract
CPT/HCPCS: 96361; 96374; 99284; M0245; 87635; 94640

== ENCOUNTER → 2022-04-26 | Outpatient (CLI) | payer BC ==
[2022-04-26 10:00] VITALS: RESP 17; TEMP 98.7
--- NOTE | 2022-04-26 10:24 | P.GSHP ---
History of Present Illness H&P Date: 04/26/22 Chief Complaint: pain right chest wall García is a 61 year old white female that is post left breast mastectomy and subpectoral implant reconstruction in 2005. This was done for ductal carcinoma in situ. She did not have any hormone therapy, chemotherapy, or radiation. On the right breast she had an augmentation with silicone implant clamp placed for symmetry purposes. This was done in 2005. Developed a hematoma in the left side approximately 10 days after the implant was placed and was necessary to have this evacuated. Her last mammogram of the right breast was approximately 3 years ago. The patient approximately 5 days ago began experiencing some discomfort in the right breast upper outer quadrant area. She states that it became progressively more uncomfortable and is uncomfortable with any pressure or with her seatbelt. It feels firm in that area to her. She is taking Motrin approximately 400 mg every 4-6 hours with minimal relief. She is not complaining of any lumps masses or nodules in the breast. She is not complaining of any fever or chills. She has not had any trauma to the breast. She is not complaining of any abnormal nipple discharge. Caffeine: 1 cup/day nicotine: none chocolate: occasional Family History: mother: polyps in colon, breast cancer sister: skin cancer Hormonal History: menarche: 16 , breast fed: yes, age at first : 25 menopasue: 49 Surgical History: Left mastectomy with implant reconstruction, right breast augmentation gallbladder Medical History: HTN high cholesterol Social history: Nicotine: Negative Alcohol:occasional drugs: none - Constitutional Constitutional: Denies chills, Denies fever - EENT Eyes: denies blurred vision, denies pain Ears: deny: decreased hearing, tinnitus Ears, nose, mouth and throat: Denies headache, Denies sore throat - Breasts Breasts: bilateral: as per HPI - Cardiovascular Cardiovascular: Denies chest pain, Denies shortness of breath - Respiratory Respiratory: Denies cough, Denies 7 - Gastrointestinal Gastrointestinal: Denies abdominal pain, Denies diarrhea, Denies nausea, Denies vomiting - Genitourinary (Female) Genitourinary: Denies dysuria, Denies hematuria - Menstruation Menstruation: Reports postmenopausal - Musculoskeletal Musculoskeletal: Denies myalgias - Integumentary Integumentary: Denies pruritus, Denies rash - Neurological Neurological: Denies numbness, Denies weakness - Psychiatric Psychiatric: Reports anxiety, Reports depression - Endocrine Endocrine: Denies fatigue, Denies weight change - Hematologic/Lymphatic Comment: none - Allergic/Immunologic Allergic/Immunologic: Reports seasonal allergies Past Medical History Past Medical History: Cancer, Hyperlipidemia, Hypertension Additional Past Medical History / Comment(s): hx lt breast cancer, BREAST IMPLANTS History of Any Multi-Drug Resistant Organisms: None Reported Past Surgical History: Breast Surgery, Cholecystectomy Additional Past Surgical History / Comment(s): lt breast mastectomy. colonoscopy Past Anesthesia/Blood Transfusion Reactions: No Reported Reaction Past Psychological History: Anxiety, Depression Smoking Status: Never smoker Past Alcohol Use History: Occasional Past Drug Use History: None Reported - Past Family History Mother Family Medical History: Cancer Medications and Allergies Home Medications Medication Instructions Recorded Confirmed Type Simvastatin [Zocor] 10 mg PO HS 06/25/19 04/26/22 History atenoloL [Tenormin] 12.5 mg PO DAILY 06/25/19 04/26/22 History Albuterol Sulfate [Ventolin HFA] 1 - 2 puff INHALATION RT-Q6H PRN 07/29/20 04/26/22 History Ascorbic Acid [Vitamin C] 1,000 mg PO DAILY 07/29/20 04/26/22 History buPROPion HCL [Wellbutrin SR] 150 mg PO Q12H 07/29/20 04/26/22 History Fluticasone Nasal [place] [Flonase 1 spray NASAL DAILY PRN 04/26/22 04/26/22 History Nasal [place]] Loratadine-Pseudoeph 10-240 mg 1 tab PO DAILY PRN 04/26/22 04/26/22 History [Claritin-D 24 Hour] Venlafaxine HCl ER [Effexor XR] 150 mg PO HS 04/26/22 04/26/22 History guaiFENesin-DM 600/30MG [Mucinex 1 tab PO DIRECTED PRN 04/26/22 04/26/22 History Dm] Allergies Allergy/AdvReac Type Severity Reaction Status Date / Time azithromycin [From Zithromax] Allergy palpitation Verified 04/26/22 09:50 s desogestrel-ethinyl estradiol Allergy " almost Verified 04/26/22 09:50 [From [facility] (28)] had a stroke" ethinyl estradiol Allergy " almost Verified 04/26/22 09:50 [From [facility] (28)] had a stroke" Surgical - Exam Vital Signs Temp Resp 98.7 F 17 04/26/22 09:56 04/26/22 09:56 BMI: 26.6 - Neck trachea midline - Respiratory normal respiratory effort, clear to auscultation - Cardiovascular Rhythm: regular Heart Sounds: normal: S1, S2 - Abdomen Abdomen: soft, non tender, no guarding, no rigid, no rebound - Integumentary well healed scar left chest wall - Neurologic no disoriented, no combative - Musculoskeletal normal gait, normal posture - Psychiatric oriented to time, oriented to person, oriented to place, speech is normal, memory intact Breast Exam: BRA: 38C Inspection: Bilateral grade 2 ptosis, well-healed scar left breast from surgery for reconstruction Palpation: Right breast: Multiple positional exam The patient has a implant in place which is tender and appears to be very fall, the patient states that it was not like this recent until recently, no specific parenchymal masses felt Right axilla: No adenopathy of concern Left breast: Multiple positional exam implant in place, scar tissue, patient has had a mastectomy on this side and there is no evidence of any disease on the chest wall Left axilla: No adenopathy of concern Results Patient has had not had any recent radiographic studies of her breast Assessment and Plan Assessment: Impression: Right breast pain Patient status post left breast mastectomy with implant reconstruction no evidence of recurrent cancer Swollen right breast implant/no erythema or obvious infection of the right breast Hypertension High cholesterol Plan: Bilateral breast MRI Patient to follow up after MRI CC: Dr. Santiago
== END ==
LOC: WWCWWP 08:57
PROVIDERS: ATTEND Surgery
DX: Z85.3 Personal history of malignant neoplasm of breast (principal); I10 Essential (primary) hypertension; E78.00 Pure hypercholesterolemia, unspecified; Z88.1 Allergy status to other antibiotic agents; Z88.8 Allergy status to other drugs, medicaments and biological substances; Z79.899 Other long term (current) drug therapy

== ENCOUNTER → 2022-04-27 | Outpatient (CLI) | payer BC ==
--- NOTE | 2022-04-29 11:12 | BMR ---
EXAMINATION TYPE: MR breast BILAT wo/w con DATE OF EXAM: 04/27/2022 COMPARISON: 3D right breast mammogram June 24, 2020 BI-RADS 2 HISTORY: Rt breast pain, Breakdown of breast prosthesis. History of left breast cancer 2006 with bila teral silicone implants. TECHNIQUE: A series of fat and water weighted images in the long and short axis views of both breasts are obtained in conjunction with dynamic contrast MRI with subtraction technique. The patient was i njected with 7 mL intravenous Gadavist gadolinium contrast. Three-dimensional and additional postpr ocessing imaging is created on independent workstation and reviewed during official interpretation of this study. REFERENCE: Reference FINDINGS: There are symmetric subcentimeter bilateral axillary lymph nodes. No concerning axillary ad enopathy. Left breast is majority occupied by breast implant with minimal surrounding fat dense tissue. There a re prominent folds along the anterior aspect uniform in distribution. There is diminished size to the right breast implant with more prominent anterior tissue showing scattered fibroglandular tissue. Th ere is peripheral linear density consistent with collapse implant on the right. There is no MRI evide nce of free silicone bilaterally or extracapsular rupture. No significant cystic changes present in e ither breast. Postcontrast imaging shows minimal background enhancement. No pathologic enhancement or enhancing masses are seen. Chest wall is intact. Incidental note is made of [id number] size h iatal hernia coronal image 46. IMPRESSION: Confirmation of right-sided breast implant intracapsular rupture as detailed above.
== END | disposition home or self-care (01) ==
LOC: RADMRIMAIN 12:14
PROVIDERS: ATTEND Surgery
DX: T85.41XA Breakdown (mechanical) of breast prosthesis and implant, initial encounter (principal); Z98.82 Breast implant status
CPT/HCPCS: 77049; A9585

== ENCOUNTER → 2022-05-18 | Outpatient (CLI) | payer BC ==
[2022-05-18 11:21] VITALS: BP 144/82; PULSE 86; RESP 16; TEMP 98.3
--- NOTE | 2022-05-18 12:14 | P.PN ---
Subjective Progress Note Date: 05/18/22 Principal diagnosis: ruptured right breast implant García is a 61 year old white female that is post left breast mastectomy and subpectoral implant reconstruction in 2005. This was done for ductal carcinoma in situ. She did not have any hormone therapy, chemotherapy, or radiation. On the right breast she had an augmentation with silicone implant clamp placed for symmetry purposes. This was done in 2005. Developed a hematoma in the left side approximately 10 days after the implant was placed and was necessary to have this evacuated. Her last mammogram of the right breast was approximately 3 years ago. The patient approximately 5 days ago began experiencing some discom fort in the right breast upper outer quadrant area. She states that it became progressively more uncomfortable and is uncomfortable with any pressure or with her seatbelt. It feels firm in that area to her. She is taking Motrin approximately 400 mg every 4-6 hours with minimal relief. She is not complaining of any lumps masses or nodules in the breast. She is not complaining of any fever or chills. She has not had any trauma to the breast. She is not complaining of any abnormal nipple discharge. She had a bilateral MRI performed on [id number]. This revealed a rupture of the right breast implant. There was no evidence of rupture of the left breast implant. The discomfort in the breast has improved. Caffeine: 1 cup/day nicotine: none chocolate: occasional Family History: mother: polyps in colon, breast cancer sister: skin cancer Hormonal History: menarche: 16 , breast fed: yes, age at first : 25 menopasue: 49 Surgical History: Left mastectomy with implant reconstruction, right breast augmentation gallbladder Medical History: HTN high cholesterol Social history: Nicotine: Negative Alcohol:occasional drugs: none - Constitutional Constitutional: Denies chills, Denies fever - EENT Eyes: denies blurred vision, denies pain Ears: deny: decreased hearing, tinnitus Ears, nose, mouth and throat: Denies headache, Denies sore throat - Breasts Breasts: bilateral: as per HPI - Cardiovascular Cardiovascular: Denies chest pain, Denies shortness of breath - Respiratory Respiratory: Denies cough - Gastrointestinal Gastrointestinal: Denies abdominal pain, Denies diarrhea, Denies nausea, Denies vomiting - Genitourinary (Female) Genitourinary: Denies dysuria, Denies hematuria - Menstruation Menstruation: Reports postmenopausal - Musculoskeletal Musculoskeletal: Denies myalgias - Integumentary Integumentary: Denies pruritus, Denies rash - Neurological Neurological: Denies numbness, Denies weakness - Psychiatric Psychiatric: Reports anxiety, Reports depression - Endocrine Endocrine: Denies fatigue, Denies weight change - Hematologic/Lymphatic Comment: none - Allergic/Immunologic Allergic/Immunologic: Reports seasonal allergies Objective - Vital Signs Vital signs: Vital Signs Temp 98.3 F 05/18/22 11:17 Pulse 86 05/18/22 11:17 Resp 16 05/18/22 11:17 BP 144/82 05/18/22 11:17 Pulse Ox 98 05/18/22 11:17 FiO2 Intake & Output 05/17/22 05/18/22 05/18/22 18:59 06:59 18:59 Weight 68.039 kg - Constitutional General appearance: Present: cooperative - EENT Eyes: Present: EOMI ENT: Present: hearing grossly normal - Neck Neck: Present: normal ROM - Respiratory Respiratory: bilateral: CTA - Cardiovascular Rhythm: regular Heart sounds: normal: S1, S2 - Gastrointestinal General gastrointestinal: Present: soft - Integumentary Integumentary: Present: normal turgor - Musculoskeletal Musculoskeletal: Present: gait normal - Psychiatric Psychiatric: Present: A&O x's 3, appropriate affect, intact judgment & insight - Additional findings Additional findings: Breast Exam: BRA: 38C Inspection: Asymmetry of the breast related to prior left mastectomy for malignancy, and the right implant placement Palpation: Right breast: Multi-positional exam the patient has an implant in place which is tender and an recent MRI is noted to be ruptured, no dominant masses or nodules felt Right axilla: No adenopathy of concern Left breast: Multi-positional exam implant in place scar tissue patient has had a mastectomy in the side evidence of any disease on the chest wall Left axilla: No adenopathy of concern Assessment and Plan Assessment: Impression: Ruptured right breast implant No evidence of recurrent cancer/ stage 0 ductal carcinoma in situ. Plan: Appointment with plastic surgery Removal of right breast ruptured implant patient is most likely going to have another implant placed and we'll decide this after she plastic surgery CC:Dr. Santiago
== END | disposition home or self-care (01) ==
LOC: WWCWWP 11:06
PROVIDERS: ATTEND Surgery
DX: Z53.9 Procedure and treatment not carried out, unspecified reason (principal)

== ENCOUNTER → 2023-04-29 | Outpatient (CLI) | payer BC ==
--- NOTE | 2023-04-30 14:28 | BD ---
EXAMINATION TYPE: Axial Bone Density DATE OF EXAM: 04/29/2023 CLINICAL HISTORY: 62 years old Female. ICD-10 CODE: N95.1 MENOPAUSAL AND FEMALE CLIMACTERIC STA, M89 .9 Height: 62" Weight: 140.1lbs FRAX RISK QUESTIONS: Alcohol (3 or more units per day): No Family History (Parent hip fracture): No Glucocorticoids (More than 3mos): No (Ex: prednisone, prednisolone, methylprednisolone, dexamethasone, and hydrocortisone). History of Fracture in Adulthood: No Secondary Osteoporosis: 1. Type 1 Diabetes: No 2. Hyperthyroidism: No 3. Menopause before 45: Yes 4. Malnutrition: No 5. Chronic liver disease: No Rheumatoid Arthritis: No Current Tobacco Use: No RISK FACTORS HISTORY OF: Hip Fracture (Right/Left): No Spine Fracture: No History of Wrist Fracture: No Surgery to Spine/Hip(right/left)/Wrist (right/left): No Family History of Osteoporosis: No`` Active: Yes Diet low in dairy products/other sources of calcium: Moderate amounts Postmenopausal woman: Yes Lost more than 2 inches in height since high school: No Frequent falls: No Poor Health: No Hyperparathyroidism: No Adrenal Insufficiency: No MEDICATIONS: Prednisone or other steroids: No Thyroid Medications: No Osteoporosis Medications: No Additional Medications: Blood pressure meds, cholesterol, anxiety meds, allergy meds, inhaler on occa catrachito Additional History: None EXAM MEASUREMENTS: Bone mineral densitometry was performed using the [employer] System. Bone mineral density as measured about the Lumbar spine is: ----- L1-L4(G/cm2): 1.011 T Score Values are as follows: ----- L1: -1.6 ----- L2: -1.2 ----- L3: -0.7 ----- L4: -2.1 ----- L1-L4: -1.4 Z Score Values are as follows: ----- L1: -0.2 ----- L2: 0.2 ----- L3: 0.7 ----- L4: -0.7 ----- L1-L4: 0.0 Bone mineral density has: decreased -5.0% since study of: 02/03/2018 Bone mineral density about the R hip (g/cm2): 0.940 Bone mineral density about the L hip (g/cm2): 0.944 T Score values are as follows: -----R Neck: -1.3 -----L Neck: -1.1 -----R Total: -0.5 -----L Total: -0.5 Z Score values are as follows: -----R Neck: 0.1 -----L Neck: 0.2 -----R Total: 0.5 -----L Total: 0.5 Bone mineral density has: decreased -4.8% since study of: 02/03/2018 FRAX%s: The graph provided illustrates a 8.0% chance for a major osteoporotic fx and a 0.6% chance fo r the hips probability for fx in 10 years time. IMPRESSION: Normal (Values between +1 and -1 indicate normal bone mass). Consider repeating this study in 5 year s or sooner if there is some new clinical indication. NOTE: T-SCORE=SD OF THE YOUNG ADULT MEAN.
== END | disposition home or self-care (01) ==
LOC: RADBDWWP 16:23
PROVIDERS: ATTEND Family Medicine
DX: M85.89 Other specified disorders of bone density and structure, multiple sites (principal); N95.1 Menopausal and female climacteric states
CPT/HCPCS: 77080